=== PATIENT | male | born 1940 | race Caucasian/White ===

== ENCOUNTER → 2016-12-27 | Outpatient (CLI) | payer MEDICARE, OTHER ==
[~2016-12-27] MED LIST: AMIO200T2 PO; AMLO10TA2 PO; APIX5TAB PO; ASPI-611 PO; CHLO25TA2 PO; CHOL-9 PO; FISH1CAP2 PO; FURO20TA4 PO; GABA-305 PO; HYDR-3989 PO; INSU100V SQ; LEVO75TA10 PO; LOSA100T44 PO; MULT-806 PO; NITR0.4T SL; POTA20TA10 PO; PRAV80TA23 PO; SERT50TA12 PO; TAMS0.4C47 PO
== END ==
LOC: NWCC 09:58
PROVIDERS: ATTEND Surgery
DX: E11.621 Type 2 diabetes mellitus with foot ulcer (principal); L97.512 Non-pressure chronic ulcer of other part of right foot with fat layer exposed; I73.9 Peripheral vascular disease, unspecified; Z86.14 Personal history of Methicillin resistant Staphylococcus aureus infection
CPT/HCPCS: A6209; G0463

== ENCOUNTER → 2017-01-06 | Outpatient (CLI) | payer MEDICARE, OTHER ==
--- NOTE | 2017-01-06 08:25 | DI ---
Indication: ITS.REASON: R51 HEADACHE PROCEDURE: CT SINUSES W/O CONTRAST: Encounter: Initial Comparison: None Technique: Axial CT images were performed through the sinuses without intravenous contrast. Coronal and sagittal two-dimensional reformats. Automated Exposure Control and Iterative Reconstruction dose reducing techniques were utilized. Findings: The maxillary sinuses are clear. No significant mucosal thickening. The right ostiomeatal unit is narrowed by mucosal thickening. Left ostiomeatal unit is patent. The frontal sinuses are clear. The anterior, middle and posterior ethmoid air cells are clear. The right sphenoid sinus shows a small pocket of mucosal thickening inferiorly. Sinuses clear. The visualized mastoid air cells are clear. No significant nasal septal deviation or spurring. Small left gabrielle bullosa. Impression: Mild right sphenoid sinus disease. .
== END ==
LOC: IMA 07:30
PROVIDERS: ATTEND Family Medicine
DX: J34.89 Other specified disorders of nose and nasal sinuses (principal); R51 Headache

== ENCOUNTER → 2017-01-17 | Outpatient (CLI) | payer MEDICARE, OTHER | LOC: NWCC 10:52 | PROVIDERS: ATTEND Surgery | DX: E11.621 Type 2 diabetes mellitus with foot ulcer (principal); L97.412 Non-pressure chronic ulcer of right heel and midfoot with fat layer exposed; Z86.14 Personal history of Methicillin resistant Staphylococcus aureus infection | CPT/HCPCS: 11042; A6196 ==

== ENCOUNTER → 2017-01-31 | Outpatient (CLI) | payer MEDICARE, OTHER | LOC: NWCC 10:46 | PROVIDERS: ATTEND Surgery | DX: E11.621 Type 2 diabetes mellitus with foot ulcer (principal); L97.412 Non-pressure chronic ulcer of right heel and midfoot with fat layer exposed; Z86.14 Personal history of Methicillin resistant Staphylococcus aureus infection; E11.42 Type 2 diabetes mellitus with diabetic polyneuropathy | CPT/HCPCS: 11055 ==